=== PATIENT | female | born 1980 | race Caucasian/White ===

== ENCOUNTER 2018-01-04 12:21 | Emergency (ER) | payer MEDICAID, OTHER ==
[2018-01-04 14:14] LABS: APPEARANCE,URINE Clear (CLEAR); BILIRUBIN,URINE Negative (NEGATIVE); COLOR,URINE Yellow (YELLOW); GLUCOSE, URINE (UA) Negative (NEGATIVE); KETONES,URINE Negative (NEGATIVE); LEUKOCYTE ESTERASE ,URINE Negative (NEGATIVE); NITRATE,URINE Negative (NEGATIVE); OCCULT BLOOD,URINE Negative (NEGATIVE); PROTEIN,URINE Negative (NEGATIVE); UROBILINOGEN,URINE 0.2 mg/dL (0.2-1.0)
== END 2018-01-04 14:52 | disposition left against medical advice (07) ==
LOC: EDH 12:21
DX: J02.9 Acute pharyngitis, unspecified (principal); R13.10 Dysphagia, unspecified; F41.9 Anxiety disorder, unspecified; Z79.899 Other long term (current) drug therapy; Z72.0 Tobacco use
CPT/HCPCS: 81003; 87880

== ENCOUNTER 2022-07-27 06:34 | Inpatient (IN) | payer OTHER ==
[~2022-07-27] VITALS: Ht 167.6 cm; Wt 77.1 kg
[2022-07-27] MEDS ORDERED: 0.9%NACL 1000ML 1,000 ML IV ONE (08:00)
[2022-07-27 09:06] LABS: BASOPHILS % (AUTO) 0.4 % (0.0-5.0); EOSINOPHILS % (AUTO) 1.4 % (0.0-8.0); LYMPHOCYTES % (AUTO) 22.5 % (21.0-51.0); MEAN CORPUSCULAR HEMOGLOBIN 28.5 pg (27.0-33.0); MEAN CORPUSCULAR HGB CONC 32.2 g/dL (32.0-36.0); MEAN CORPUSCULAR VOLUME 88.7 fL (79-99); MONOCYTES % (AUTO) 11.8 % (3.0-13.0); NEUTROPHILS % (AUTO) 63.5 % (40.0-77.0); PLATELET COUNT (AUTO) 199 K/uL (130-400); RED BLOOD CELL COUNT(AUTO) 4.17 MIL/uL (4.00-5.50); RED CELL DISTRIBUTION WIDTH 13.8 % (11.0-15.5); WHITE BLOOD COUNT (AUTO) 7.4 K/uL (4.8-10.8)
[2022-07-27 09:24] LABS: CARBON DIOXIDE 29 mmol/L (21-32); CHLORIDE 103 mmol/L (101-111); CREATININE 0.7 mg/dL (0.5-1.5); GLOMERULAR FILTR. RATE CALC 98 mL/min (>60); GLUCOSE,RANDOM 107 mg/dL (70-105); POTASSIUM 3.9 mmol/L (3.5-5.1); SODIUM SERUM 139 mmol/L (136-145); UREA NITROGEN, BLOOD 10 mg/dL (7-18)
[2022-07-27 09:29] LABS: ALANINE AMINOTRANSFERASE 49 U/L (12-78); ALBUMIN 3.8 g/dL (3.5-5.0); ALCOHOL, BLOOD < 3 mg/dL (0-10); ASPARTATE AMINOTRANSFERASE 56 U/L (10-37); TOTAL PROTEIN, SERUM 7.3 g/dL (6.0-8.3)
[2022-07-27 09:35] LABS: SALICYLATE 3.2 mg/dL (2.8-20.0)
[2022-07-27 09:43] LABS: ACETAMINOPHEN < 1 mcg/mL (10-30); CREATINE KINASE, TOTAL 948 U/L (21-232)
[2022-07-27 11:30] LABS: APPEARANCE,URINE CLEAR (CLEAR); BILIRUBIN,URINE NEGATIVE (NEGATIVE); COLOR,URINE YELLOW (YELLOW); GLUCOSE, URINE (UA) NEGATIVE (NEGATIVE); KETONES,URINE 20 mg/dL (NEGATIVE); LEUKOCYTE ESTERASE ,URINE NEGATIVE Leu/uL (NEGATIVE); NITRATE,URINE NEGATIVE (NEGATIVE); OCCULT BLOOD,URINE NEGATIVE (NEGATIVE); PROTEIN,URINE 10 mg/dL (NEGATIVE); UROBILINOGEN,URINE 0.2 mg/dL (0.2-1.0)
[2022-07-27] MEDS: HYDROXYZINE 100MG/2ML VIAL IM SCH (11:30)
[2022-07-27 11:40] LABS: AMPHET/METH SCREEN,URINE POSITIVE (NEGATIVE); BARBITURATE SCREEN, URINE NEGATIVE (NEGATIVE); BENZODIAZEPINES SCREEN,URINE POSITIVE (NEGATIVE); CANNABINOID SCREEN,URINE POSITIVE (NEGATIVE); COCAINE SCREEN,URINE POSITIVE (NEGATIVE); OPIATE SCREEN,URINE NEGATIVE (NEGATIVE); PHENCYCLIDINE SCREEN,URINE NEGATIVE (NEGATIVE)
[2022-07-27 11:46] LABS: BACTERIA,URINE RARE /HPF (None Seen); MUCUS,URINE RARE LPF (None Seen); RBC,URINE 0-1 /HPF (0-1); SQUAMOUS EPITHELIAL CELL,UR RARE /HPF (0-2)
[2022-07-27] MEDS: CLONAZEPAM 1MG TAB PO SCH ×2 (12:44→20:16)
[2022-07-27] MEDS ORDERED: KETOROLAC 15MG/ML VIAL (15MG/ML) IV ONE (15:00)
[2022-07-27] MEDS: 0.9%NACL 1000ML 1,000 ML IV SCH (22:24)
[2022-07-28] MEDS: 0.9%NACL 1000ML 1,000 ML IV SCH ×2 (06:54→15:50)
[2022-07-28 08:02] LABS: BASOPHILS % (AUTO) 0.6 % (0.0-5.0); EOSINOPHILS % (AUTO) 3.9 % (0.0-8.0); HEMATOCRIT 38.2 % (36-48); LYMPHOCYTES % (AUTO) 23.2 % (21.0-51.0); MEAN CORPUSCULAR HEMOGLOBIN 28.4 pg (27.0-33.0); MEAN CORPUSCULAR HGB CONC 32.7 g/dL (32.0-36.0); MEAN CORPUSCULAR VOLUME 86.8 fL (79-99); MONOCYTES % (AUTO) 10.5 % (3.0-13.0); NEUTROPHILS % (AUTO) 61.6 % (40.0-77.0); PLATELET COUNT (AUTO) 185 K/uL (130-400); RED CELL DISTRIBUTION WIDTH 13.9 % (11.0-15.5); WHITE BLOOD COUNT (AUTO) 5.1 K/uL (4.8-10.8)
[2022-07-28 09:01] LABS: CREATININE 0.7 mg/dL (0.5-1.5); POTASSIUM 3.6 mmol/L (3.5-5.1)
[2022-07-28 10:31] VITALS: BP 106/61
[2022-07-28 11:00] VITALS: BP 130/75
[2022-07-28] MEDS: CLONAZEPAM 0.5 MG TABLET PO SCH ×2 (11:23→21:51)
[2022-07-28] MEDS: THIAMINE HCL 100 MG/ML 2ML VIAL IVP SCH (11:23)
[2022-07-28] MEDS: FOLIC ACID 1 MG TABLET PO SCH (11:23)
[2022-07-28] MEDS: PANTOPRAZOLE 40 MG TAB DR PO SCH (11:30)
[2022-07-28 16:00] VITALS: BP_SYST 109; BP_DIAS 75; BP_DIAS 76
[2022-07-28 20:11] VITALS: BP 103/60
[2022-07-28] MEDS: DIAZEPAM 2 MG TAB PO PRN (23:39)
[2022-07-28 23:42] VITALS: BP 110/63
[2022-07-29] MEDS: DIAZEPAM 2 MG TAB PO PRN ×2 (02:28→16:47)
[2022-07-29 04:13] VITALS: BP 119/71
[2022-07-29] MEDS: 0.9%NACL 1000ML 1,000 ML IV SCH ×2 (05:34→18:30)
[2022-07-29 07:16] LABS: BASOPHILS % (AUTO) 0.4 % (0.0-5.0); EOSINOPHILS % (AUTO) 3.5 % (0.0-8.0); HEMATOCRIT 37.6 % (36-48); LYMPHOCYTES % (AUTO) 31.7 % (21.0-51.0); MEAN CORPUSCULAR HEMOGLOBIN 28.6 pg (27.0-33.0); MEAN CORPUSCULAR HGB CONC 31.4 g/dL (32.0-36.0); NEUTROPHILS % (AUTO) 53.8 % (40.0-77.0); PLATELET COUNT (AUTO) 184 K/uL (130-400); RED BLOOD CELL COUNT(AUTO) 4.13 MIL/uL (4.00-5.50); RED CELL DISTRIBUTION WIDTH 13.7 % (11.0-15.5); WHITE BLOOD COUNT (AUTO) 5.2 K/uL (4.8-10.8)
[2022-07-29 07:30] VITALS: BP 113/65
[2022-07-29 07:30] LABS: CREATININE 0.6 mg/dL (0.5-1.5); POTASSIUM 3.7 mmol/L (3.5-5.1)
[2022-07-29] MEDS: PANTOPRAZOLE 40 MG TAB DR PO SCH (10:38)
[2022-07-29] MEDS: FOLIC ACID 1 MG TABLET PO SCH (10:39)
[2022-07-29] MEDS: THIAMINE HCL 100 MG/ML 2ML VIAL IVP SCH (10:39)
[2022-07-29] MEDS: CLONAZEPAM 0.5 MG TABLET PO SCH ×2 (10:39→21:15)
[2022-07-29 11:30] VITALS: BP 114/66
[2022-07-29 15:30] VITALS: BP 119/82
[2022-07-29] MEDS ORDERED: PHARMACY COMMUNICATION MISC SCH (19:30)
[2022-07-29 20:00] VITALS: BP 128/75
[2022-07-29] MEDS ORDERED: DULOXETINE HCL 20 MG PO SCH (21:00)
[2022-07-30] VITALS: BP 103/53
[2022-07-30 04:00] VITALS: BP 120/68
[2022-07-30 05:17] LABS: HEMATOCRIT 35.4 % (36-48); MEAN CORPUSCULAR HEMOGLOBIN 28.5 pg (27.0-33.0); MEAN CORPUSCULAR HGB CONC 33.1 g/dL (32.0-36.0); MEAN CORPUSCULAR VOLUME 86.3 fL (79-99); RED BLOOD CELL COUNT(AUTO) 4.1 MIL/uL (4.00-5.50); RED CELL DISTRIBUTION WIDTH 13.6 % (11.0-15.5); WHITE BLOOD COUNT (AUTO) 6.4 K/uL (4.8-10.8)
[2022-07-30 05:28] LABS: CREATININE 0.7 mg/dL (0.5-1.5); POTASSIUM 3.6 mmol/L (3.5-5.1)
[2022-07-30] MEDS: 0.9%NACL 1000ML 1,000 ML IV SCH (07:50)
[2022-07-30] MEDS: THIAMINE HCL 100 MG/ML 2ML VIAL IVP SCH (10:01)
[2022-07-30] MEDS: PANTOPRAZOLE 40 MG TAB DR PO SCH (10:01)
[2022-07-30] MEDS: FOLIC ACID 1 MG TABLET PO SCH (10:01)
[2022-07-30] MEDS: CLONAZEPAM 0.5 MG TABLET PO SCH (10:01)
[2022-07-30 11:00] VITALS: BP 128/76
[2022-07-30] MEDS: HYDROXYZINE 100MG/2ML VIAL IM SCH (11:30)
[2022-07-30 15:30] VITALS: BP 135/83
[2022-07-30] MEDS ORDERED: DULO20 PO (15:40)
[2022-07-30] MEDS ORDERED: 0.9% NACL 250ML 250 ML ONE (16:05)
== END 2022-07-30 20:00 | disposition home or self-care (01) | DRG 558 ==
LOC: EDH 06:34 → EDHIP 06:35 → 3DH 07-28 08:38
PROVIDERS: ADMIT Internal Medicine; ATTEND Internal Medicine
DX: M62.82 Rhabdomyolysis (principal); F12.10 Cannabis abuse, uncomplicated; F14.10 Cocaine abuse, uncomplicated; F32.A Depression, unspecified; F43.10 Post-traumatic stress disorder, unspecified; M54.50 Low back pain, unspecified; Z79.899 Other long term (current) drug therapy; Z88.2 Allergy status to sulfonamides
CPT/HCPCS: 36415; 72100; 73521; 80048; 80053; 80305; 81001; 82550; 84703; 85025; 85027; G0378; G0481; J1885; J3410; J3411; J7050